=== PATIENT | female | born 1940 | race Caucasian/White ===

== ENCOUNTER → 2018-03-08 | Outpatient (CLI) | payer MEDICARE, BC ==
[2016-06-30 06:00] VITALS: BP 135/62
[~2018-03-08] MED LIST: ASPIRIN E.C. 8181 MG PO; CARDURA1 MG PO; FEOSOL325 MG PO; GOOD NEIGHBOR100 M2 PO; HORIZANT300 MG PO; HORIZANT600 MG PO; HYZAAR PO; LEADER CRANBERR1 TAB PO; LEVOFLOXACIN500 MG PO; LOSARTAN POTASS1 TA1 PO; MIRAPEX 1MG PO; NEXIUM 40MG40 MG PEG; PANTOPRAZOLE SO40 MG PO; PANTOPRAZOLE40 MG PO; PHARMASSURE FO0.4 MG PO; PHENAZOPYRIDINE95 MG PO; PROBIOTIC1 EAC1 PO; TART CHERRY E1000 MG PO; VITAMIN C PURE500 M1 PO
[2018-03-08 09:56] LABS: BUN/CREATININE RATIO 28.1 (6.0-26.0); CALCIUM 9.6 mg/dL (8.4-10.2)
== END ==
LOC: LAB 09:39
PROVIDERS: Family Medicine
DX: R79.89 Other specified abnormal findings of blood chemistry (principal)

== ENCOUNTER → 2018-03-09 | Outpatient (CLI) | payer MEDICARE, BC ==
[2016-06-30 06:00] VITALS: BP 135/62
[2018-03-09 07:19] LABS: BUN/CREATININE RATIO 34.3 (6.0-26.0); CALCIUM 9.1 mg/dL (8.4-10.2); POTASSIUM 3.9 mmol/L (3.6-5.0)
[2018-03-09 07:51] LABS: URINE APPEARANCE CLEAR; URINE BILIRUBIN NEGATIVE (NEGATIVE); URINE BLOOD NEGATIVE (NEGATIVE); URINE COLOR YELLOW; URINE GLUCOSE NEGATIVE (NEGATIVE); URINE KETONE NEGATIVE (NEGATIVE); URINE LEUKOCYTE ESTERASE NEGATIVE (NEGATIVE); URINE MUCUS PRESENT (NOT PRESENT); URINE NITRATE NEGATIVE (NEGATIVE); URINE PROTEIN(semi-quant) NEGATIVE (NEGATIVE); URINE UROBILINOGEN NORMAL (NORMAL); URINE WBC 0-1 /hpf (0-3)
== END ==
LOC: LAB 06:46
PROVIDERS: Family Medicine
DX: R79.89 Other specified abnormal findings of blood chemistry (principal)

== ENCOUNTER → 2018-03-10 | Outpatient (CLI) | payer MEDICARE, BC ==
[2016-06-30 06:00] VITALS: BP 135/62
[2018-03-10 08:25] LABS: BUN/CREATININE RATIO 34.2 (6.0-26.0); CALCIUM 9.2 mg/dL (8.4-10.2); POTASSIUM 4.5 mmol/L (3.6-5.0)
== END ==
LOC: LAB 07:10
PROVIDERS: Nurse Practitioner Family
DX: R79.89 Other specified abnormal findings of blood chemistry (principal)

== ENCOUNTER → 2018-03-14 | Outpatient (CLI) | payer MEDICARE, BC ==
[2016-06-30 06:00] VITALS: BP 135/62
[2018-03-14 07:50] LABS: BUN/CREATININE RATIO 24.3 (6.0-26.0); CALCIUM 8.7 mg/dL (8.4-10.2); POTASSIUM 4.3 mmol/L (3.6-5.0)
== END ==
LOC: LAB 07:26
PROVIDERS: Family Medicine
DX: R89.9 Unspecified abnormal finding in specimens from other organs, systems and tissues (principal); R79.89 Other specified abnormal findings of blood chemistry; R79.9 Abnormal finding of blood chemistry, unspecified

== ENCOUNTER → 2018-05-04 | Outpatient (CLI) | payer MEDICARE, BC ==
[2016-06-30 06:00] VITALS: BP 135/62
== END ==
LOC: VAS 15:35
DX: R93.1 Abnormal findings on diagnostic imaging of heart and coronary circulation (principal)

== ENCOUNTER 2019-02-14 10:57 | Observation (INO) | payer MEDICARE, BC ==
[~2019-02-14] VITALS: Ht 165.1 cm; Wt 96.4 kg
[~2019-02-14 10:57] MED LIST changes: +BISOPROLOL FUMA10 M1 PO; +CALCIUM + D3 E1 EACH PO; +DECADRON4 M1 PO; +PROBIOTIC1 EAC2 PO; +REVLIMID10 M1 PO; +VELCADE3.5 MG IM; +VELCADE3.5 MG IV
[2019-02-14 12:27] LABS: HEMATOCRIT 30.9 % (37.0-47.0); HEMOGLOBIN 9.1 g/dL (12.5-16.0); MEAN CELL VOLUME 88 fl (78-100); MEAN CORPUSCULAR HEMOGLOBIN 26 pg (27-31); PLATELET COUNT 133 K/mm3 (130-400); RED BLOOD COUNT 3.52 M/mm3 (4.10-5.30); RED CELL DISTRIBUTION WIDTH 16.2 % (11.5-14.5); WHITE BLOOD COUNT 5.1 K/mm3 (4.8-10.8)
[2019-02-14 12:31] LABS: ALBUMIN 3.4 g/dL (3.5-5.0); CALCIUM 9.2 mg/dL (8.4-10.2); POTASSIUM 3.8 mmol/L (3.6-5.0); TOTAL BILIRUBIN 0.5 mg/dL (0.2-1.3); TOTAL PROTEIN 5.6 g/dL (6.3-8.2)
[2019-02-14 12:32] LABS: MEAN CORPUSCULAR HGB CONC 29 g/dL (33-37); MEAN PLATELET VOLUME 12.9 fl (7.4-10.4)
[2019-02-14 12:36] LABS: PARTIAL THROMBOPLASTIN TIME 25.2 SECONDS (21.0-32.0); PROTHROMBIN TIME 10.5 SECONDS (9.0-12.0)
[2019-02-14 12:51] LABS: TROPONIN-I < 0.03 ng/mL (0.00-0.06)
[2019-02-14 12:52] LABS: HYPOCHROMIA 1+; LYMPHOCYTE 20 % (20-51); MONOCYTE 10 % (3-10); NEUTROPHILS 53 % (42-75)
[2019-02-14 16:25] VITALS: BP 159/93
[2019-02-14 16:50] LABS: URINE APPEARANCE HAZY; URINE COLOR YELLOW; URINE PROTEIN(semi-quant) TRACE mg/dL (NEGATIVE)
[2019-02-14 16:51] LABS: URINE BILIRUBIN NEGATIVE (NEGATIVE); URINE BLOOD TRACE (NEGATIVE); URINE GLUCOSE NEGATIVE (NEGATIVE); URINE KETONE NEGATIVE (NEGATIVE); URINE LEUKOCYTE ESTERASE 2+ (NEGATIVE); URINE NITRATE NEGATIVE (NEGATIVE); URINE UROBILINOGEN NORMAL (NORMAL); URINE WBC 31-50 /hpf (0-3)
[2019-02-14] MEDS ORDERED: NEURONTIN300 MG/CAP (17:20)
[2019-02-14] MEDS ORDERED: NEURONTIN600 M1 PO (17:20)
[2019-02-14 18:43] VITALS: BP 159/93
[2019-02-14 22:57] VITALS: BP 128/765
[2019-02-15 02:31] VITALS: BP 121/59
[2019-02-15 06:22] VITALS: BP 133/62
[2019-02-15] MEDS ORDERED: MACROBID 100 M100 MG PO (07:53)
[2019-02-15] MEDS ORDERED: BISOPROLOL FUMA10 M1 PO ×2 (07:53→07:54)
[2019-02-16] MEDS ORDERED: PREDNISONE20 MG PO (20:01)
[2019-02-16] MEDS ORDERED: LASIX20 M1 PO (20:01)
[2019-02-19] MEDS ORDERED: COZAAR25 M1 PO (20:03)
[2019-02-19] MEDS ORDERED: PREDNISONE20 M1 PO (20:08)
== END 2019-02-15 08:43 | disposition home or self-care (01) ==
LOC: ED 10:57 → MED/SURG 16:03
PROVIDERS: ADMIT Physician Assistant
DX: R06.09 Other forms of dyspnea (principal); Z79.01 Long term (current) use of anticoagulants; I10 Essential (primary) hypertension; Z86.718 Personal history of other venous thrombosis and embolism; Z90.710 Acquired absence of both cervix and uterus; Z96.651 Presence of right artificial knee joint; Z88.8 Allergy status to other drugs, medicaments and biological substances; Z88.0 Allergy status to penicillin; Z88.2 Allergy status to sulfonamides; Z88.5 Allergy status to narcotic agent; Z88.1 Allergy status to other antibiotic agents; Z88.6 Allergy status to analgesic agent; Z91.018 Allergy to other foods; N39.0 Urinary tract infection, site not specified; Z85.79 Personal history of other malignant neoplasms of lymphoid, hematopoietic and related tissues
CPT/HCPCS: G0378; J1650; Q9967

== ENCOUNTER 2019-02-22 19:44 | Outpatient (RCR) | payer MEDICARE, BC ==
[2019-02-13 08:00] VITALS: BP 137/64
[2019-02-13 19:52] VITALS: BP 146/71
[2019-02-14 07:57] VITALS: BP 151/67
[2019-02-15 20:10] VITALS: BP 162/71
[2019-02-16 08:06] VITALS: BP 131/65
[2019-02-16 20:00] VITALS: BP 193/82
[2019-02-17 07:56] VITALS: BP 165/72
[2019-02-17 19:46] VITALS: BP 194/90
[2019-02-18 08:05] VITALS: BP 135/66
[2019-02-18 19:59] VITALS: BP 189/80
[2019-02-19 09:44] VITALS: BP 165/78
[2019-02-19 20:10] VITALS: BP 194/84
[2019-02-20 08:03] VITALS: BP 187/88
[2019-02-20 19:48] VITALS: BP 156/71
[2019-02-21 07:55] VITALS: BP 147/68
[2019-02-21 20:02] VITALS: BP 164/82
[~2019-02-22] VITALS: Ht 165.1 cm; Wt 96.0 kg
[2019-02-22 07:59] VITALS: BP 157/72
[~2019-02-22 19:44] MED LIST changes: +COZAAR25 M1 PO; +LASIX20 M1 PO; +MACROBID 100 M100 MG PO; +NEURONTIN300 MG/CAP; +NEURONTIN600 M1 PO; +PREDNISONE20 M1 PO; +PREDNISONE20 MG PO
[2019-02-22 20:00] VITALS: BP 161/73
[2019-02-27] MEDS ORDERED: COUMADIN 1010 MG/TAB PO (20:06)
== END 2019-02-22 20:00 | disposition home or self-care (01) ==
LOC: AMSURD 19:44
DX: I82.402 Acute embolism and thrombosis of unspecified deep veins of left lower extremity (principal); I26.99 Other pulmonary embolism without acute cor pulmonale; C90.00 Multiple myeloma not having achieved remission
CPT/HCPCS: J1650

== ENCOUNTER 2019-03-02 07:52 | Outpatient (RCR) | payer MEDICARE, BC ==
[2019-02-23 07:55] VITALS: BP 188/85
[2019-02-23 19:50] VITALS: BP 196/96
[2019-02-24 07:50] VITALS: BP 172/74
[2019-02-24 19:55] VITALS: BP 189/93
[2019-02-25 07:58] VITALS: BP 181/79
[2019-02-25 19:47] VITALS: BP 177/79
[2019-02-26 09:34] VITALS: BP 176/83
[2019-02-26 19:59] VITALS: BP 161/88
[2019-02-27 07:52] VITALS: BP 146/71
[2019-02-27 20:09] VITALS: BP 179/82
[2019-02-28 08:00] VITALS: BP 153/75
[2019-02-28 19:42] VITALS: BP 159/78
[2019-03-01 08:00] VITALS: BP 154/73
[2019-03-01 20:43] VITALS: BP 181/79
[~2019-03-02] VITALS: Ht 165.1 cm; Wt 96.0 kg
[~2019-03-02 07:52] MED LIST changes: +COUMADIN 1010 MG/TAB PO
[2019-03-02 07:58] VITALS: BP 134/77
== END 2019-03-02 10:00 | disposition home or self-care (01) ==
LOC: AMSURD 07:52
DX: C90.00 Multiple myeloma not having achieved remission (principal)
CPT/HCPCS: J1650

== ENCOUNTER 2019-04-17 15:36 | Outpatient (RCR) | payer MEDICARE, BC ==
[2019-04-05 10:38] VITALS: BP 155/62
[2019-04-06 10:30] VITALS: BP 158/77
[2019-04-07 10:43] VITALS: BP 147/75
[2019-04-08 10:20] VITALS: BP 142/78
[2019-04-09 10:26] VITALS: BP 159/87
[2019-04-10 09:10] VITALS: BP 129/72
[2019-04-11 15:56] VITALS: BP 126/66
[2019-04-13 15:55] VITALS: BP 150/87
[2019-04-14 16:14] VITALS: BP 152/91
[2019-04-15 17:15] VITALS: BP 178/86
[2019-04-16 16:29] VITALS: BP 189/97
[~2019-04-17] VITALS: Ht 165.1 cm; Wt 88.2 kg
[~2019-04-17 15:36] MED LIST changes: +DOXYCYCLINE HYC50 M1
[2019-04-17 15:42] VITALS: BP 182/89
== END 2019-04-17 16:00 | disposition home or self-care (01) ==
LOC: AMSURD 15:36
DX: I26.99 Other pulmonary embolism without acute cor pulmonale (principal)
CPT/HCPCS: J1650

== ENCOUNTER 2019-11-07 08:56 | Outpatient (RCR) | payer MEDICARE, BC ==
[2019-11-03 09:15] VITALS: BP 125/64
[2019-11-04 09:45] VITALS: BP 125/60
[2019-11-05 09:26] VITALS: BP 126/66
[2019-11-06 09:13] VITALS: BP 124/69
[~2019-11-07] VITALS: Ht 165.1 cm; Wt 88.2 kg
[~2019-11-07 08:56] MED LIST changes: +ALDACTONE 25MG25 MG PO; +COUMADIN 1MG1 MG/TAB PO; +GLUTAMENT10 GM; +GLUTAMENT10 GM PO
[2019-11-07 09:08] VITALS: BP 109/61
== END 2019-11-07 18:00 | disposition home or self-care (01) ==
LOC: AMSURD 08:56
DX: Z86.711 Personal history of pulmonary embolism (principal)
CPT/HCPCS: J1650

== ENCOUNTER → 2019-11-08 | Day surgery (SDC) | payer MEDICARE, BC ==
[2019-11-07 09:08] VITALS: BP 109/61
== END ==
LOC: MSO 08:38
DX: K21.9 Gastro-esophageal reflux disease without esophagitis (principal); K44.9 Diaphragmatic hernia without obstruction or gangrene; K31.89 Other diseases of stomach and duodenum; E78.00 Pure hypercholesterolemia, unspecified; Z90.710 Acquired absence of both cervix and uterus; Z88.1 Allergy status to other antibiotic agents; Z88.5 Allergy status to narcotic agent; Z79.01 Long term (current) use of anticoagulants; Z79.84 Long term (current) use of oral hypoglycemic drugs; Z88.0 Allergy status to penicillin; Z88.8 Allergy status to other drugs, medicaments and biological substances; Z88.6 Allergy status to analgesic agent
CPT/HCPCS: 00731; J2704; J7120

== ENCOUNTER 2019-11-15 10:00 | Outpatient (RCR) | payer MEDICARE, BC | END 2019-11-21 | disposition still patient (30) | LOC: PT | DX: C90.00 Multiple myeloma not having achieved remission (principal); C41.9 Malignant neoplasm of bone and articular cartilage, unspecified ==

== ENCOUNTER 2019-12-31 18:01 | Emergency (ER) | payer MEDICARE, BC ==
[~2019-12-31] VITALS: Wt 86.4 kg
[~2019-12-31 18:01] MED LIST changes: -ZOVIRAX400 MG PO
[2019-12-31] MEDS ORDERED: NEURONTIN300 MG/CAP (18:25)
[2019-12-31] MEDS ORDERED: ZOVIRAX400 MG PO (18:25)
[2019-12-31 18:28] LABS: HEMATOCRIT 25.6 % (37.0-47.0); MEAN CELL VOLUME 100 fl (78-100); MEAN CORPUSCULAR HEMOGLOBIN 30 pg (27-31); MEAN CORPUSCULAR HGB CONC 30 g/dL (33-37); MEAN PLATELET VOLUME 10.9 fl (7.4-10.4); PLATELET COUNT 288 K/mm3 (130-400); RED BLOOD COUNT 2.56 M/mm3 (4.10-5.30); RED CELL DISTRIBUTION WIDTH 15.8 % (11.5-14.5); WHITE BLOOD COUNT 18.8 K/mm3 (4.8-10.8)
[2019-12-31 18:30] LABS: HEMOGLOBIN 7.6 g/dL (12.5-16.0)
[2019-12-31 18:36] LABS: ALBUMIN 3.7 g/dL (3.4-4.8); POTASSIUM 4.2 mmol/L (3.5-5.1)
[2019-12-31 18:37] LABS: CALCIUM 9.8 mg/dL (8.3-10.5)
[2019-12-31 18:39] LABS: TOTAL PROTEIN 6.6 g/dL (6.2-8.1)
[2019-12-31 18:40] LABS: BAND 1 % (0-10); LYMPHOCYTE 10 % (20-51); MONOCYTE 10 % (3-10); NEUTROPHILS 77 % (42-75); TOTAL BILIRUBIN 0.7 mg/dL (0.2-1.2)
[2019-12-31 18:41] LABS: PROTHROMBIN TIME 13.2 SECONDS (9.0-12.0)
[2019-12-31 23:08] VITALS: BP 121/66
== END 2019-12-31 23:08 | disposition short-term general hospital (02) ==
LOC: ED 18:01
PROVIDERS: Nurse Practitioner Primary Care
DX: I26.99 Other pulmonary embolism without acute cor pulmonale (principal); N17.9 Acute kidney failure, unspecified; I82.402 Acute embolism and thrombosis of unspecified deep veins of left lower extremity; Z79.01 Long term (current) use of anticoagulants; Z85.79 Personal history of other malignant neoplasms of lymphoid, hematopoietic and related tissues
CPT/HCPCS: J1644; J7030; Q9967

== ENCOUNTER → 2019-12-31 | Outpatient (CLI) | payer MEDICARE, BC ==
[~2019-12-31] MED LIST changes: +ZOVIRAX400 MG PO
== END ==
LOC: RAD 17:28
DX: Z13.6 Encounter for screening for cardiovascular disorders (principal); I82.402 Acute embolism and thrombosis of unspecified deep veins of left lower extremity; M79.89 Other specified soft tissue disorders

== ENCOUNTER 2020-01-31 09:28 | Outpatient (RCR) | payer MEDICARE, BC ==
[2020-01-07 12:16] VITALS: BP 135/72
[2020-01-08 17:06] VITALS: BP 148/71
[2020-01-09 09:05] VITALS: BP 153/79
[2020-01-10 09:04] VITALS: BP 151/71
[2020-01-11 09:05] VITALS: BP 122/74
[2020-01-12 08:56] VITALS: BP 119/70
[2020-01-13 09:46] VITALS: BP 124/79
[2020-01-14 09:14] VITALS: BP 123/68
[2020-01-15 08:37] VITALS: BP 123/66
[2020-01-16 09:16] VITALS: BP 115/67
[2020-01-17 11:32] VITALS: BP 118/57
[2020-01-18 09:13] VITALS: BP 128/68
[2020-01-19 09:09] VITALS: BP 137/72
[2020-01-20 09:40] VITALS: BP 118/66
[2020-01-21 08:58] VITALS: BP 138/76
[2020-01-22 09:37] VITALS: BP 122/71
[2020-01-23 09:36] VITALS: BP 127/75
[2020-01-24 09:44] VITALS: BP 133/67
[2020-01-25 09:38] VITALS: BP 157/77
[2020-01-26 09:42] VITALS: BP 170/85
[2020-01-27 09:55] VITALS: BP 107/65
[2020-01-28 09:43] VITALS: BP 134/70
[2020-01-29 09:15] VITALS: BP 132/71
[2020-01-30 09:41] VITALS: BP 150/81
[~2020-01-31] VITALS: Ht 165.1 cm; Wt 85.5 kg
[~2020-01-31 09:28] MED LIST changes: +ZOVIRAX400 MG PO
[2020-01-31 11:33] VITALS: BP 122/70
== END 2020-04-06 | disposition still patient (30) ==
LOC: AMSURD
DX: I26.99 Other pulmonary embolism without acute cor pulmonale (principal); I82.402 Acute embolism and thrombosis of unspecified deep veins of left lower extremity; Z79.01 Long term (current) use of anticoagulants
CPT/HCPCS: J1650

== ENCOUNTER 2021-04-14 11:00 | Outpatient (RCR) | payer MEDICARE, BC ==
[2020-08-11 16:17] VITALS: BP 160/68
== END 2021-04-23 10:22 | disposition home or self-care (01) ==
LOC: PT 11:00
DX: M25.512 Pain in left shoulder (principal)

== ENCOUNTER 2021-04-27 11:49 | Emergency (ER) | payer MEDICARE, BC ==
[2021-04-27 12:32] LABS: HEMATOCRIT 32.3 % (37.0-47.0); HEMOGLOBIN 10.1 g/dL (12.5-16.0); MEAN CELL VOLUME 96 fl (78-100); MEAN CORPUSCULAR HEMOGLOBIN 30 pg (27-31); MEAN CORPUSCULAR HGB CONC 31 g/dL (33-37); MEAN PLATELET VOLUME 10.7 fl (7.4-10.4); PLATELET COUNT 234 K/mm3 (130-400); RED BLOOD COUNT 3.36 M/mm3 (4.10-5.30); RED CELL DISTRIBUTION WIDTH 14.7 % (11.5-14.5); WHITE BLOOD COUNT 8.9 K/mm3 (4.8-10.8)
[2021-04-27 12:47] LABS: ALBUMIN 3.9 g/dL (3.4-4.8)
[2021-04-27 12:48] LABS: LYMPHOCYTE 7 % (20-51); MONOCYTE 1 % (3-10); NEUTROPHILS 92 % (42-75); OVALOCYTES 1+; POTASSIUM 3.7 mmol/L (3.5-5.1); SODIUM 141 mmol/L (136-145)
[2021-04-27 12:49] LABS: CALCIUM 9.6 mg/dL (8.3-10.5)
[2021-04-27 12:50] LABS: GLUCOSE 221 mg/dL (65-105); TOTAL PROTEIN 6.2 g/dL (6.2-8.1)
[2021-04-27 12:51] LABS: CARBON DIOXIDE 27 mmol/L (23-31); PARTIAL THROMBOPLASTIN TIME 19.4 SECONDS (21.0-32.0); PROTHROMBIN TIME 9.9 SECONDS (9.0-12.0)
[2021-04-27 12:52] LABS: TOTAL BILIRUBIN 0.3 mg/dL (0.2-1.2)
[2021-04-27 12:55] LABS: AST-SGOT 6 U/L (5-34)
[2021-04-27 12:57] LABS: ALT/SGPT 13 U/L (0-55)
[2021-04-27 13:04] LABS: TROPONIN-I < 0.03 ng/mL (<0.030)
[2021-04-27 13:48] LABS: URINE APPEARANCE CLEAR; URINE BILIRUBIN NEGATIVE (NEGATIVE); URINE BLOOD NEGATIVE (NEGATIVE); URINE COLOR YELLOW; URINE GLUCOSE NEGATIVE (NEGATIVE); URINE KETONE NEGATIVE (NEGATIVE); URINE LEUKOCYTE ESTERASE NEGATIVE (NEGATIVE); URINE NITRATE NEGATIVE (NEGATIVE); URINE PROTEIN(semi-quant) TRACE mg/dL (NEGATIVE); URINE UROBILINOGEN NORMAL (NORMAL)
[2021-04-27] MEDS ORDERED: ZITHROMAX 250M250 MG PO (14:11)
[2021-04-27] MEDS ORDERED: NOVAPLUS LO SQ (14:23)
[2021-04-27] MEDS ORDERED: LOSARTAN POTAS100 MG PO (14:24)
[2021-04-27] MEDS ORDERED: GLIMEPIRIDE1 MG PO (14:24)
[2021-04-27] MEDS ORDERED: PRAMIPEXOLE DIHY1 MG PO (14:27)
[2021-04-27] MEDS ORDERED: NORCO 325 MG-51 TA1 PO (14:30)
[2021-04-27] MEDS ORDERED: ONDANSETRON ODT8 MG PO (14:30)
[2021-04-27] MEDS ORDERED: [UNRECOGNIZED DRUG - OTHER] IV (14:30)
[2021-04-27] MEDS ORDERED: OXYGEN NAS (14:31)
[2021-04-27 17:05] VITALS: BP 197/94
== END 2021-04-27 17:05 | disposition home or self-care (01) ==
LOC: ED 11:49
PROVIDERS: Nurse Practitioner
DX: J40 Bronchitis, not specified as acute or chronic (principal); I10 Essential (primary) hypertension; M54.6 Pain in thoracic spine; Z86.711 Personal history of pulmonary embolism; Z86.718 Personal history of other venous thrombosis and embolism; Z20.822 Contact with and (suspected) exposure to COVID-19; Z88.8 Allergy status to other drugs, medicaments and biological substances; Z79.01 Long term (current) use of anticoagulants; Z79.899 Other long term (current) drug therapy
CPT/HCPCS: J2270; J2405; J2930; J3010; J7030; Q9967

== ENCOUNTER → 2021-06-11 | Outpatient (CLI) | payer MEDICARE, BC ==
[~2021-06-11] MED LIST changes: +GLIMEPIRIDE1 MG PO; +LOSARTAN POTAS100 MG PO; +NORCO 325 MG-51 TA1 PO; +NOVAPLUS LO SQ; +ONDANSETRON ODT8 MG PO; +OXYGEN NAS; +PRAMIPEXOLE DIHY1 MG PO; +ZITHROMAX 250M250 MG PO; +[UNRECOGNIZED DRUG - OTHER] IV
== END ==
LOC: VAS 10:35 → RAD 11:30
DX: I82.462 Acute embolism and thrombosis of left calf muscular vein (principal); M79.661 Pain in right lower leg; M79.89 Other specified soft tissue disorders

== ENCOUNTER → 2021-09-22 | Outpatient (CLI) | payer MEDICARE, BC ==
[2021-09-22 08:54] LABS: ALBUMIN 3.8 g/dL (3.4-4.8)
[2021-09-22 08:55] LABS: POTASSIUM 4.1 mmol/L (3.5-5.1)
[2021-09-22 08:56] LABS: CALCIUM 9.8 mg/dL (8.3-10.5)
[2021-09-22 08:57] LABS: TOTAL PROTEIN 6.3 g/dL (6.2-8.1)
[2021-09-22 08:59] LABS: TOTAL BILIRUBIN 0.5 mg/dL (0.2-1.2)
== END ==
LOC: LAB 06:58
PROVIDERS: Internal Medicine Nephrology
DX: C90.00 Multiple myeloma not having achieved remission (principal); I12.9 Hypertensive chronic kidney disease with stage 1 through stage 4 chronic kidney disease, or unspecified chronic kidney disease; N18.31 Chronic kidney disease, stage 3a

== ENCOUNTER → 2021-09-24 | Outpatient (CLI) | payer MEDICARE, BC | LOC: RAD 09-22 07:30 | DX: N18.31 Chronic kidney disease, stage 3a (principal); N28.9 Disorder of kidney and ureter, unspecified ==

== ENCOUNTER → 2021-11-05 | Day surgery (SDC) | payer MEDICARE, BC | LOC: MSO 08:28 | DX: K21.00 Gastro-esophageal reflux disease with esophagitis, without bleeding (principal); K44.9 Diaphragmatic hernia without obstruction or gangrene; K22.2 Esophageal obstruction; K29.70 Gastritis, unspecified, without bleeding; Z86.711 Personal history of pulmonary embolism; Z86.718 Personal history of other venous thrombosis and embolism; E11.22 Type 2 diabetes mellitus with diabetic chronic kidney disease; N18.30 Chronic kidney disease, stage 3 unspecified; Z85.820 Personal history of malignant melanoma of skin; E11.42 Type 2 diabetes mellitus with diabetic polyneuropathy; Z79.899 Other long term (current) drug therapy | CPT/HCPCS: 00731; C1769; J2704; J7120 ==

== ENCOUNTER 2022-03-19 09:49 | Emergency (ER) | payer MEDICARE, BC ==
[~2022-03-19] VITALS: Ht 152.4 cm; Wt 68.7 kg
[2022-03-19 12:25] LABS: BASO # 0.02 K/mm3 (0.02-0.10); EOS # 0.12 K/mm3 (0.04-0.40); EOS % 1.7 % (1.0-5.0); HEMATOCRIT 32.1 % (37.0-47.0); LYMPH# 1.14 K/mm3 (1.50-4.00); MEAN CELL VOLUME 99 fl (78-100); MEAN CORPUSCULAR HEMOGLOBIN 31 pg (27-31); MEAN CORPUSCULAR HGB CONC 31 g/dL (33-37); MEAN PLATELET VOLUME 11.6 fl (7.4-10.4); MONO # 0.62 K/mm3 (0.20-0.80); NEU # 4.89 K/mm3 (1.40-6.50); PLATELET COUNT 210 K/mm3 (130-400); RED BLOOD COUNT 3.26 M/mm3 (4.10-5.30); RED CELL DISTRIBUTION WIDTH 19.8 % (11.5-14.5); WHITE BLOOD COUNT 6.9 K/mm3 (4.8-10.8)
[2022-03-19 12:29] LABS: ALBUMIN 3.6 g/dL (3.4-4.8); SODIUM 141 mmol/L (136-145)
[2022-03-19 12:30] LABS: CALCIUM 11.7 mg/dL (8.3-10.5)
[2022-03-19 12:32] LABS: GLUCOSE 124 mg/dL (65-105); TOTAL PROTEIN 6.1 g/dL (6.2-8.1)
[2022-03-19 12:33] LABS: CARBON DIOXIDE 30 mmol/L (23-31); TOTAL BILIRUBIN 0.6 mg/dL (0.2-1.2)
[2022-03-19 12:37] LABS: AST-SGOT 11 U/L (5-34)
[2022-03-19 12:39] LABS: ALT/SGPT 15 U/L (0-55)
[2022-03-19 13:18] LABS: TROPONIN-I < 0.030 ng/mL (<0.030)
[2022-03-19 14:57] LABS: URINE APPEARANCE CLEAR; URINE BILIRUBIN NEGATIVE (NEGATIVE); URINE BLOOD NEGATIVE (NEGATIVE); URINE COLOR LIGHT YELLOW; URINE GLUCOSE NEGATIVE (NEGATIVE); URINE KETONE NEGATIVE (NEGATIVE); URINE LEUKOCYTE ESTERASE NEGATIVE (NEGATIVE); URINE NITRATE NEGATIVE (NEGATIVE); URINE PROTEIN(semi-quant) TRACE (NEGATIVE); URINE UROBILINOGEN NORMAL (NORMAL); URINE WBC 0-1 /hpf (0-3)
[2022-03-19 15:25] VITALS: BP 138/68
== END 2022-03-19 15:40 | disposition home or self-care (01) ==
LOC: ED 09:49
PROVIDERS: Nurse Practitioner
DX: M25.551 Pain in right hip (principal); M54.50 Low back pain, unspecified; C90.00 Multiple myeloma not having achieved remission; Z98.890 Other specified postprocedural states; Z98.1 Arthrodesis status; Z87.81 Personal history of (healed) traumatic fracture
CPT/HCPCS: J7030

== ENCOUNTER → 2022-05-19 | Outpatient (CLI) | payer MEDICARE, BC | LOC: LAB 17:55 | DX: U07.1 COVID-19 (principal) ==

== ENCOUNTER → 2022-05-21 | Outpatient (CLI) | payer MEDICARE, BC ==
[~2022-05-21] VITALS: Ht 152.4 cm; Wt 68.7 kg
[2022-05-21 12:21] VITALS: BP 169/81
[2022-05-21 13:25] VITALS: BP 156/76
== END ==
LOC: AMSURD 11:33
DX: U07.1 COVID-19 (principal); E11.22 Type 2 diabetes mellitus with diabetic chronic kidney disease; N18.9 Chronic kidney disease, unspecified

== ENCOUNTER 2022-06-05 09:58 | Emergency (ER) | payer MEDICARE, BC ==
[~2022-06-05] VITALS: Ht 165.1 cm; Wt 72.3 kg
[~2022-06-05 09:58] MED LIST changes: +NEURONTIN300 MG/CAP PO
[2022-06-05 11:10] LABS: BASO # 0.01 K/mm3 (0.02-0.10); EOS # 0.04 K/mm3 (0.04-0.40); EOS % 0.3 % (1.0-5.0); HEMOGLOBIN 9.5 g/dL (12.5-16.0); LYMPH# 0.66 K/mm3 (1.50-4.00); MEAN CELL VOLUME 101 fl (78-100); MEAN CORPUSCULAR HEMOGLOBIN 32 pg (27-31); MEAN CORPUSCULAR HGB CONC 32 g/dL (33-37); MEAN PLATELET VOLUME 11.7 fl (7.4-10.4); MONO # 1.08 K/mm3 (0.20-0.80); NEU # 13.13 K/mm3 (1.40-6.50); PLATELET COUNT 193 K/mm3 (130-400); RED BLOOD COUNT 2.97 M/mm3 (4.10-5.30); RED CELL DISTRIBUTION WIDTH 17.3 % (11.5-14.5); WHITE BLOOD COUNT 15.4 K/mm3 (4.8-10.8)
[2022-06-05 11:25] LABS: ALBUMIN 3.5 g/dL (3.4-4.8)
[2022-06-05 11:26] LABS: POTASSIUM 4.6 mmol/L (3.5-5.1)
[2022-06-05 11:27] LABS: CALCIUM 9.1 mg/dL (8.3-10.5)
[2022-06-05 11:28] LABS: TOTAL PROTEIN 5.5 g/dL (6.2-8.1)
[2022-06-05 11:32] LABS: D-DIMER 2.61 mg/L FEU (0.15-0.50)
[2022-06-05] MEDS ORDERED: CLONIDINE HYDR0.1 MG PO (11:34)
[2022-06-05] MEDS ORDERED: XARELTO10 MG PO (11:35)
[2022-06-05] MEDS ORDERED: OXYGEN NAS (11:36)
[2022-06-05 12:22] LABS: URINE APPEARANCE CLOUDY; URINE BILIRUBIN NEGATIVE (NEGATIVE); URINE BLOOD TRACE (NEGATIVE); URINE COLOR YELLOW; URINE GLUCOSE 50 mg/dL (NEGATIVE); URINE KETONE NEGATIVE (NEGATIVE); URINE LEUKOCYTE ESTERASE 2+ (NEGATIVE); URINE NITRATE NEGATIVE (NEGATIVE); URINE PROTEIN(semi-quant) 2+ (NEGATIVE); URINE UROBILINOGEN NORMAL (NORMAL); URINE WBC >50 /hpf (0-3)
[2022-06-05] MEDS ORDERED: AMLODIPINE BESYL5 MG PO (14:15)
[2022-06-05 15:35] VITALS: BP 146/55
== END 2022-06-05 15:30 | disposition short-term general hospital (02) ==
LOC: ED 09:58
PROVIDERS: Family Medicine
DX: U07.1 COVID-19 (principal); J18.9 Pneumonia, unspecified organism; E11.9 Type 2 diabetes mellitus without complications; I50.9 Heart failure, unspecified; I11.0 Hypertensive heart disease with heart failure; Z86.711 Personal history of pulmonary embolism
CPT/HCPCS: J0696; J1815; J7030; Q9967

== ENCOUNTER 2022-06-08 12:57 | Inpatient (IN) | payer MEDICARE, BC ==
[~2022-06-08] VITALS: Ht 167.6 cm; Wt 70.0 kg
[~2022-06-08 12:57] MED LIST changes: +AMLODIPINE BESYL5 MG PO; +CLONIDINE HYDR0.1 MG PO; +XARELTO10 MG PO
--- NOTE | 2022-06-08 13:00 | NUR ---
Patient transferred from [facility] for swing bed. Taken to room 306 via wheelchair. Patient transfers into bed with walker, gait belt, and staff assist x1. Patient is alert and oriented x4. Rates pain 3/10 to ankles and buttocks. States that she usually takes oxycodone for her pain. Single lumen PICC to right upper arm flushes without difficulty. Blood return noted. PICC dressing is clean, dry, and intact. No redness, drainage, or edema noted to insertion site. Patient denies dizziness or shortness of breath. Oxygen saturation 95% on room air. Patient states that she wears oxygen at 2 liters via nasal cannula while sleeping, at baseline. Last BM yesterday. Denies urinary incontinence. Patient oriented to room, call light, bed controls, and fall precautions. Visitor policy explained. Education folder and swing bed program letter provided. Discussed expectations and hospital routines. Patient verbalizes understanding and denies questions or needs at this time. Fall precautions in place.
[2022-06-08] MEDS ORDERED: VIBRAMYCIN HYC100 MG PO (14:41)
[2022-06-08] MEDS ORDERED: DECADRON6 M1 PO (14:42)
[2022-06-08] MEDS ORDERED: LEVEMIR100 U/M1 SQ (14:43)
[2022-06-08] MEDS ORDERED: ONDANSETRON HYDR8 MG PO (14:50)
[2022-06-08] MEDS ORDERED: BISOPROLOL FUMA10 M1 PO (14:51)
[2022-06-08] MEDS ORDERED: PERCOCET 325 MG1 TA2 PO (15:13)
[2022-06-08] MEDS ORDERED: PROAIR HFA0.09 MG/AC IH (15:16)
[2022-06-08] MEDS ORDERED: NOVOLOG 100U100 U/ML SQ (15:17)
[2022-06-08] MEDS ORDERED: ALDACTONE 25MG25 MG PO (15:31)
[2022-06-08 17:31] VITALS: BP 151/80
--- NOTE | 2022-06-08 23:00 | NUR ---
Report received from Sarah العلي. Patient rests with eyes closed. Respirations with ease.
[2022-06-09 06:00] VITALS: BP 142/65
--- NOTE | 2022-06-09 08:00 | NUR ---
Pt sitting in recliner. Reports sleeping well. Denies pain. Assessment completed. LSCTA. AM medication given. Occasional productive cough with clear sputum noted. Needs met. Fall precautions in place.
[2022-06-09 08:17] LABS: HEMATOCRIT 26.5 % (37.0-47.0); HEMOGLOBIN 8.6 g/dL (12.5-16.0); MEAN CELL VOLUME 100 fl (78-100); RED BLOOD COUNT 2.66 M/mm3 (4.10-5.30); WHITE BLOOD COUNT 15.3 K/mm3 (4.8-10.8)
[2022-06-09 08:18] LABS: MEAN CORPUSCULAR HEMOGLOBIN 32 pg (27-31); MEAN CORPUSCULAR HGB CONC 33 g/dL (33-37); MEAN PLATELET VOLUME 11.5 fl (7.4-10.4); PLATELET COUNT 311 K/mm3 (130-400); RED CELL DISTRIBUTION WIDTH 16.6 % (11.5-14.5)
[2022-06-09 08:24] LABS: URINE APPEARANCE CLOUDY; URINE BILIRUBIN NEGATIVE (NEGATIVE); URINE BLOOD NEGATIVE (NEGATIVE); URINE COLOR YELLOW; URINE KETONE NEGATIVE (NEGATIVE); URINE LEUKOCYTE ESTERASE TRACE (NEGATIVE); URINE NITRATE NEGATIVE (NEGATIVE); URINE PROTEIN(semi-quant) NEGATIVE (NEGATIVE); URINE UROBILINOGEN NORMAL (NORMAL)
[2022-06-09 08:32] LABS: ALBUMIN 3.4 g/dL (3.4-4.8); POTASSIUM 4.3 mmol/L (3.5-5.1)
[2022-06-09 08:33] LABS: CALCIUM 10.1 mg/dL (8.3-10.5)
[2022-06-09 08:36] LABS: TOTAL BILIRUBIN 0.4 mg/dL (0.2-1.2)
--- NOTE | 2022-06-09 09:00 | NUR ---
Urine culture recieved. New orders obtained.
[2022-06-09 09:19] LABS: LYMPHOCYTE 5 % (20-51); MONOCYTE 4 % (3-10); NEUTROPHILS 91 % (42-75)
[2022-06-09 09:21] LABS: HYPOCHROMIA 1+
[2022-06-09 17:15] VITALS: BP 128/67
--- NOTE | 2022-06-09 17:54 | NUR ---
PCT reports patient coughing. Upon entrance to room, patient noted coughing. Patient keeps conversation with nurse. Patient explains she "choked after drinking lemonade." Education provided, reminded to take small slow sips. Patient verbalizes understanding.
[2022-06-10 05:56] VITALS: BP 162/76
[2022-06-10 07:34] LABS: HEMATOCRIT 27.7 % (37.0-47.0); MEAN CELL VOLUME 98 fl (78-100); MEAN CORPUSCULAR HEMOGLOBIN 32 pg (27-31); MEAN CORPUSCULAR HGB CONC 33 g/dL (33-37); MEAN PLATELET VOLUME 11.1 fl (7.4-10.4); PLATELET COUNT 270 K/mm3 (130-400); RED BLOOD COUNT 2.83 M/mm3 (4.10-5.30); RED CELL DISTRIBUTION WIDTH 16.6 % (11.5-14.5); WHITE BLOOD COUNT 13.6 K/mm3 (4.8-10.8)
[2022-06-10 08:28] LABS: BAND 7 % (0-10); LYMPHOCYTE 7 % (20-51); METAMYELOCYTE 3 % (0-0); MONOCYTE 4 % (3-10)
[2022-06-10 08:29] LABS: NEUTROPHILS 79 % (42-75)
--- NOTE | 2022-06-10 09:41 | NUR ---
Pt up in recliner. Denies pain. Assessment completed. PICC line flushed well with blood return. Pt reports that her has rescheduled her Monday 06/[address] Sarmiento for a telehealth appt at 1145. Occasional nonproductive cough remains. Needs met. Fall precautions in place.
[2022-06-10 17:19] VITALS: BP 148/76
--- NOTE | 2022-06-10 19:00 | NUR ---
REPORT RECEIVED FROM SEVERIANO VELASQUEZ
--- NOTE | 2022-06-10 21:00 | NUR ---
PATIENT PLEASENT AND COOPERATIVE WITH CARES. A&OX4, STATES DISCOMFORT WITH MOVEMENT. ASSESSMENT COMPLETE. PATIENT SITTING IN CHAIR WITH TV ON, DENIES OTHER NEEDS OR COMPLAINTS AT THIS TIME. CHAIR ALARM ON, CALL LIGHT WITHIN REACH.
--- NOTE | 2022-06-10 23:00 | NUR ---
REPORT GIVENT TO SEVERIANO VILLA
[2022-06-11 06:14] VITALS: BP 163/71
--- NOTE | 2022-06-11 07:14 | NUR ---
REPORT GIVEN TO VESTA العلي
[2022-06-11 16:12] VITALS: BP 116/68
--- NOTE | 2022-06-11 19:00 | NUR ---
Report received from Danitza العلي.
--- NOTE | 2022-06-11 21:00 | NUR ---
HS meds reviewed and given. Alert and oriented x 4. Denies pain at this time. Snack of peanut butter toast and hot tea given per request.
--- NOTE | 2022-06-12 05:26 | NUR ---
Patient reports she slept well. States she feels like she's really improving by being here. Up to the bathroom and then to recliner.
[2022-06-12 06:07] VITALS: BP 167/76
--- NOTE | 2022-06-12 13:50 | NUR ---
Pt requests Oxycodone for pain. Pt educated about percocet versus oxycodone and verbalized understanding. States she would like to walk in a little bit, and would like to have the pain medication prior to walking around. Denies pain at rest, but states pain is 10/10 while up walking. Percocet given per PRN orders, and pt resting in chair-positioned for comfort. Call light in reach.
[2022-06-12 17:12] VITALS: BP 134/76
--- NOTE | 2022-06-12 19:00 | NUR ---
Report received from Taylor العلي.
--- NOTE | 2022-06-12 21:00 | NUR ---
HS meds all reviewed and given. Patient states she's going to sit up longer tonight in chair due to taking a nap earlier and will call when ready for HS. Denies needs at this time. Pleasant, alert and oriented x 4.
[2022-06-13 06:21] VITALS: BP 147/73
[2022-06-13 17:17] VITALS: BP 153/77
--- NOTE | 2022-06-13 20:00 | NUR ---
Report received from SEVERIANO Merino. Patient up in recliner. Takes meds whole with water. Denies pain at rest. Requests assistance to bathroom. PCT assists patient. Ambulates well with walker. No other needs at this time. Chair alarm set and call light within reach.
[2022-06-14 05:22] VITALS: BP 153/77
--- NOTE | 2022-06-14 06:00 | NUR ---
No events overnight. Patient rested well. No pain or needs at this time.
[2022-06-14 07:14] LABS: HEMATOCRIT 28.2 % (37.0-47.0); HEMOGLOBIN 9.2 g/dL (12.5-16.0); MEAN CELL VOLUME 99 fl (78-100); MEAN CORPUSCULAR HEMOGLOBIN 32 pg (27-31); MEAN CORPUSCULAR HGB CONC 33 g/dL (33-37); MEAN PLATELET VOLUME 10.9 fl (7.4-10.4); PLATELET COUNT 263 K/mm3 (130-400); RED BLOOD COUNT 2.84 M/mm3 (4.10-5.30)
[2022-06-14 07:15] LABS: ALBUMIN 3.2 g/dL (3.4-4.8)
[2022-06-14 07:16] LABS: POTASSIUM 4.6 mmol/L (3.5-5.1)
[2022-06-14 07:17] LABS: CALCIUM 9.4 mg/dL (8.3-10.5)
[2022-06-14 07:20] LABS: TOTAL BILIRUBIN 0.4 mg/dL (0.2-1.2)
[2022-06-14 09:12] LABS: BAND 13 % (0-10); LYMPHOCYTE 6 % (20-51); METAMYELOCYTE 4 % (0-0); MONOCYTE 6 % (3-10); NEUTROPHILS 71 % (42-75)
[2022-06-14 17:12] VITALS: BP 125/74
--- NOTE | 2022-06-14 19:00 | NUR ---
Report received from Angelique العلي.
--- NOTE | 2022-06-14 21:00 | NUR ---
HS meds all reviewed and given. Patient denies needs. Accu check 398 and states she's been snacking on cinnamon roll given earlier with meal. Reviewed not the ideal snack for diabetic patients. SSI and scheduled insulin given. Reviewed insulin injection SQ and states she gave herself lovenox shots in abdomin reqularly in the past and will be given her insulin shots there at home.
--- NOTE | 2022-06-15 01:07 | NUR ---
Patient has been resting in bed with eyes closed.
--- NOTE | 2022-06-15 05:53 | NUR ---
Patient reports she slept well. Reports 10/10 achy right hip/thigh pain with ambulation 0/10 at rest and tylenol given. Up to the bathroom then sits up in recliner.
[2022-06-15 06:11] VITALS: BP 162/80
[2022-06-15 17:26] VITALS: BP 108/65
--- NOTE | 2022-06-15 17:45 | NUR ---
Patient reports pain down the back of her right leg, only when standing or walking. Offered PRN pain medication, patient denies need, states "I'm sitting down now, so it doesn't hurt anymore." Discussed her pain while working with PT/OT, patient states that she feels like the tylenol hasn't worked in the past, but she would like to try taking it more frequently starting tomorrow. Offered voltaren gel and education provided. Patient reports the percocet makes her too sleepy. Patient is eager to work with PT/OT and willing/agreable to trying voltaren and taking tylenol every 4-6 hours during the day. Patient denies needs or questions. Fall precautions in place. at bedside.
--- NOTE | 2022-06-15 19:00 | NUR ---
Report received from Navya العلي.
--- NOTE | 2022-06-15 20:30 | NUR ---
Patient sitting up in recliner watching TV. Denies pain at rest but tylenol given along with HS meds for pain prevention. Right foot soaking in warm water with hepicleansed. Insulin injections reviewed and patient self administers with good demonstration.
--- NOTE | 2022-06-16 05:00 | NUR ---
Patient has been resting with eyes closed. Respirations with ease.
[2022-06-16 06:16] VITALS: BP 108/61
[2022-06-16 17:08] VITALS: BP 116/60
[2022-06-17 06:10] VITALS: BP 119/72
--- NOTE | 2022-06-17 07:29 | NUR ---
Report received from SEVERIANO Smith. Patient resting in room without complaints.
--- NOTE | 2022-06-17 09:46 | NUR ---
PATIENT IS HAVING A GOOD MORNING WITH DECREASE IN PAIN ALL OVER AND NO ABD PAIN OR CRAMPING. PATIENT RESTING IN CHAIR WITHOUT COMPLAINTS. PICC LINE FLUSHED WITH NS EASILY AND HAD GOOD BLOOD RETURN.
[2022-06-17 16:45] VITALS: BP 102/64
--- NOTE | 2022-06-17 17:38 | NUR ---
Patient having a good afternoon. Patient did take a nap and reported that she felt very tired. Patient's right great toe is slightly red today with no oozing, patient wanted to leave it open to air all afternoon. Patient reports it is feeling much better. PICC line was flushed this morning without difficulty. Patient is up ambulating with walker and SBA only. Patient takes all pills whole and without difficulty. Patient is doing well with therapy and walking with staff. Patient denied any pain today.
[2022-06-18 05:26] VITALS: BP 109/65
--- NOTE | 2022-06-18 07:00 | NUR ---
REPORT RECEIVED FROM SEVERIANO BARBER.
--- NOTE | 2022-06-18 08:45 | NUR ---
PATIENT PLEASENT AND COOPERATIVE WITH SATHISH, A&OX4, DENIES PAIN OR DISCOMFORT AT THIS TIME. PATIENT STATES SLEPT WELL THROUGHT THE NIGHT. ASSESSMENT COMPLETE, MEDICATIONS GIVEN. PATIENT RIGHT GREAT TOE, RED AND TENDER, OINTMENT APPLIED AND COVERED WITH BANDAID. PATIENT UP TO CHAIR, CHAIR ALARM ON, CALL LIGHT WITHIN REACH.
--- NOTE | 2022-06-18 09:15 | NUR ---
PER PT, PATIENT REQUESTS APAP BEFORE THERAPY THIS AM. PRN APAP GIVEN AT THIS TIME.
--- NOTE | 2022-06-18 12:53 | NUR ---
REPORT GIVEN TO SEVERIANO CENTENO.
[2022-06-18 17:06] VITALS: BP 105/64
--- NOTE | 2022-06-18 19:20 | NUR ---
Report received from Sharon العلي. Patient resting in bed with eyes closed. No signs of pain or distress. Oxygen in place at 2L/NC. Bed alarm telephone coin box collector light in reach.
--- NOTE | 2022-06-18 21:00 | NUR ---
Awake for HS medications and assessment. Ask nurse what time it is. CURTAIN DRIER reports patient thought it was morning. Reoriented to time of day. [place] to self, , place Month and year. Denies pain. States has productive cough of "sometimes white, sometimes cream" colored sputum. Assessment completed. BS 176. Scheduled Levemier 10 Units and 4 Units of Humalog adminisitered to ASHLIE per patient request. HS po medicaitons taken after reviewed each pill with patient. Refused to soak toe tonight, did not want to get up and OOB. Old bandiad removed, great toe on R foot cleansed with H20 and soap. patted dry. New bandaid and bactroban applied. Requests and given 4 oz of cranberry juice. Denies further wants or needs. Bed alarm on. Call light in reach.
--- NOTE | 2022-06-19 01:49 | NUR ---
Patient resting quietly with no signs of pain or distress. Oxygen in place at 2L/NC. Bed alarm on. Call light in reach.
[2022-06-19 05:24] VITALS: BP 95/59
--- NOTE | 2022-06-19 05:44 | NUR ---
Rested well all night without complaint. AM medication taken whole without difficulty. Denies pain or needs.
--- NOTE | 2022-06-19 07:00 | NUR ---
Report revieved from ANÍBAL Dukes.
--- NOTE | 2022-06-19 07:16 | NUR ---
Report to Kelsey العلي.
[2022-06-19 08:18] VITALS: BP 118/78
--- NOTE | 2022-06-19 13:02 | NUR ---
Pt reports feeling gas pain, pt offered Gas X to help. Once given the Gas X pt refused stating she now does not think it is gas she believes it is her hiatal hernia "coming back" and that she needs an x-ray. Notifing Dr. Cruz.
[2022-06-19 17:06] VITALS: BP 102/73
--- NOTE | 2022-06-19 18:41 | NUR ---
Report given to ANÍBAL Dukes.
--- NOTE | 2022-06-19 19:30 | NUR ---
Report received from Kelsey العلي. Patient sitting up in recliner playing on tablet. Currently A/O x4 and to time of night. Denies pain. Agreeable to have R great toe soak at this time. Bandaid removed and toe soaked x15 minutes in hematite salt bath. Dried. Bactroban applied and fresh bandaid. Toe remains slightly reddened, no drainage or pus noted. Non tender with touch. Assessment completed. Patient requests and given cup of coffee with 2 creamers. Call light in reach.
--- NOTE | 2022-06-19 20:01 | NUR ---
Resting in bed. Cooperative with assessment and cares. BS 139. Scheduled PO Lipitor taken without difficulty. Ricoier 12 Units given in DYLAN. Voices concern over not having her address book with her and that she is having a zoom meeting Tuesday to determine where she is going to live. "I wish they would tell me those things". Allowed patient to vent and reassurance given. Thanks this nurse. Assessment completed. Denies wants or needs at this time.
--- NOTE | 2022-06-20 05:05 | NUR ---
Rested well all night. Awake this AM for vitals. AM medication taken without difficulty.
[2022-06-20 05:25] VITALS: BP 102/64
--- NOTE | 2022-06-20 07:00 | NUR ---
Report received from PN. Christine
--- NOTE | 2022-06-20 07:01 | NUR ---
Report to Petrona العلي.
--- NOTE | 2022-06-20 08:30 | NUR ---
Assessemnt charted. Pt WBG low at 64 at 0730 this morning but preferred to drink juice and checked again 20 minutes later and increased to 77, per patient wanted to have breakfast and monitor after breakfast. Pt BP lower this am as well, discussed with Dr. Cruz and he would like to hold the amlodipine this am, notified pt and discussed and she agrees. Pt has PICC to DYLAN, single lumen, flushes well and sluggish blood return but return noted. Pt denies pain, some stomach discomfort. Pt denies needs, uses walker well with staff assist. Alert and oriented, will continue to monitor.
--- NOTE | 2022-06-20 13:05 | NUR ---
Pt soaking foot now, will apply bacitracin and new bandaid shortly. Denies needs, will give report to SEVERIANO Merino who will resume care.
[2022-06-20 15:41] VITALS: BP 104/60
--- NOTE | 2022-06-20 20:21 | NUR ---
Report received from Angelique العلي. Patient resting in recliner watching TV. INSTRUCTIONAL TECHNOLOGY FACILITATOR getting ready for bed and noted a rash below L breast and also complete L breast and around to back reddened and inflammed. Patient states "its probably and bleed" "thats how my other bleeds started, on my breast, my back and down my arm. B/P at this time 104/60. Above reported to Dr. Cruz. Order to give scheduled catapress and bisoprol. Labs CBC, CMP ordered. Lab notified. Assessment completed. R foot soaked at this time.
--- NOTE | 2022-06-20 20:45 | NUR ---
Accu-check 352. 12 Units of SS insulin given with scheduled Levemier. Snack provided. Lab in to draw blood.
[2022-06-20 21:01] LABS: HEMOGLOBIN 9.1 g/dL (12.5-16.0); MEAN CELL VOLUME 103 fl (78-100); MEAN CORPUSCULAR HEMOGLOBIN 32 pg (27-31); MEAN CORPUSCULAR HGB CONC 31 g/dL (33-37); MEAN PLATELET VOLUME 11.5 fl (7.4-10.4); PLATELET COUNT 172 K/mm3 (130-400); RED BLOOD COUNT 2.82 M/mm3 (4.10-5.30); RED CELL DISTRIBUTION WIDTH 18.3 % (11.5-14.5); WHITE BLOOD COUNT 6.2 K/mm3 (4.8-10.8)
[2022-06-20 21:04] LABS: ALBUMIN 3.3 g/dL (3.4-4.8)
[2022-06-20 21:05] LABS: POTASSIUM 5.3 mmol/L (3.5-5.1)
[2022-06-20 21:06] LABS: CALCIUM 9.3 mg/dL (8.3-10.5)
[2022-06-20 21:07] LABS: TOTAL PROTEIN 5.9 g/dL (6.2-8.1)
[2022-06-20 21:09] LABS: TOTAL BILIRUBIN 0.3 mg/dL (0.2-1.2)
--- NOTE | 2022-06-20 21:48 | NUR ---
Glucose of 445 and CO2 of [address] Cruz.
[2022-06-20 21:57] LABS: LYMPHOCYTE 4 % (20-51); MONOCYTE 2 % (3-10); NEUTROPHILS 94 % (42-75)
[2022-06-20 21:59] LABS: OVALOCYTES 1+
--- NOTE | 2022-06-20 22:14 | NUR ---
Dr. Cruz in to see patient.
--- NOTE | 2022-06-21 05:47 | NUR ---
Rested well all night. Up to BR this AM with SBA. AM medication taken. Weight obtained, down 0.5Lbs from admission weight.
[2022-06-21 06:03] VITALS: BP 128/72
--- NOTE | 2022-06-21 07:03 | NUR ---
Report to Sharon العلي.
--- NOTE | 2022-06-21 09:14 | NUR ---
Patient resting in chair. SBA with gait belt and walker, RA, c/o pain in right leg while ambulating. Reports she didn't sleep well last night. Concerned about increased fatigue. Chair in locked position. Call light within reach.
[2022-06-21 15:27] VITALS: BP 133/79
--- NOTE | 2022-06-22 02:16 | NUR ---
Report received from Sarah العلي. Patient resting in bed with eyes closed. No signs of pain or distress. Bed alarm on. Call light in reach.
--- NOTE | 2022-06-22 05:30 | NUR ---
Rested well. Up to BR with SBA. AM medications taken. Weight up 0.8lbs from yesterday. LE swollen. Patient not happy with Lasix being held. B/P 119/66 this am. Back to bed with bed alarm on. Call light in reach.
[2022-06-22 05:51] VITALS: BP 119/66
--- NOTE | 2022-06-22 07:00 | NUR ---
Report to Sharon العلي.
--- NOTE | 2022-06-22 08:55 | NUR ---
Patient resting in chair. A&Ox4, RA, c/o pain in right leg. Refused PRN medication at this time. Swallowed pills whole with water. Requesting to restart lasix. Bilateral peripheral edema +2. An increase since yestarday. Findings reports to DONNA Kaplan. Left breast WNL, no redness, swelling or pain. Redness under bilateral breasts resolving with medication. Patient recieved shower this am. Medication applied under breasts. Chair in locked position. Call light within reach.
[2022-06-22 12:19] LABS: ALBUMIN 3.3 g/dL (3.4-4.8)
[2022-06-22 12:20] LABS: POTASSIUM 5.2 mmol/L (3.5-5.1)
[2022-06-22 12:21] LABS: CALCIUM 9.5 mg/dL (8.3-10.5)
[2022-06-22 12:22] LABS: TOTAL PROTEIN 5.9 g/dL (6.2-8.1)
[2022-06-22 12:24] LABS: TOTAL BILIRUBIN 0.3 mg/dL (0.2-1.2)
[2022-06-22 12:44] LABS: HEMATOCRIT 51.2 % (37.0-47.0); HEMOGLOBIN 16.2 g/dL (12.5-16.0); MEAN CELL VOLUME 100 fl (78-100); MEAN CORPUSCULAR HEMOGLOBIN 32 pg (27-31); MEAN CORPUSCULAR HGB CONC 32 g/dL (33-37); MEAN PLATELET VOLUME 11.6 fl (7.4-10.4); PLATELET COUNT 106 K/mm3 (130-400); RED BLOOD COUNT 5.13 M/mm3 (4.10-5.30); RED CELL DISTRIBUTION WIDTH 18.1 % (11.5-14.5); WHITE BLOOD COUNT 5.5 K/mm3 (4.8-10.8)
[2022-06-22 13:37] LABS: BAND 5 % (0-10); LYMPHOCYTE 13 % (20-51); MONOCYTE 4 % (3-10); NEUTROPHILS 78 % (42-75)
[2022-06-22 14:59] VITALS: BP 158/72
--- NOTE | 2022-06-22 15:27 | NUR ---
Spoke with Eva and her and daughter Paula regarding going home with home health on after lunch. She is agreeable with home health PT/OT/Bathaid/SN. They have choosen [facility]. Information faxed to [facility]. Awaiting approval from them
--- NOTE | 2022-06-22 19:02 | NUR ---
Report received from Sharon العلي. Patient sitting up in recliner,with legs elevated, playing on tablet. A/O x4. Denies pain, states has pain when up and standing/walking. Assessment completed. L breast bruising vastly decreased from this weekend. Continues to have yeast under breasts. Continues to have BLE edema. R greater then left. Denies questions, wants or needs at this time.
--- NOTE | 2022-06-23 05:48 | NUR ---
Rested well per her report. Up to BR with SBA to void. Assisted back to bed. AM medication taken. Weight up 2# lbs from yesterday.
[2022-06-23 05:59] VITALS: BP 109/64
--- NOTE | 2022-06-23 07:00 | NUR ---
RESUMED CARE FROM ANÍBAL ANDERSON.
--- NOTE | 2022-06-23 07:00 | NUR ---
Report to Danitza العلي.
[2022-06-23 11:49] LABS: HEMOGLOBIN 8.4 g/dL (12.5-16.0); MEAN CELL VOLUME 103 fl (78-100); MEAN CORPUSCULAR HEMOGLOBIN 32 pg (27-31); MEAN CORPUSCULAR HGB CONC 31 g/dL (33-37); MEAN PLATELET VOLUME 10.7 fl (7.4-10.4); PLATELET COUNT 163 K/mm3 (130-400); RED BLOOD COUNT 2.63 M/mm3 (4.10-5.30); RED CELL DISTRIBUTION WIDTH 18.3 % (11.5-14.5); WHITE BLOOD COUNT 4.7 K/mm3 (4.8-10.8)
[2022-06-23 12:04] LABS: POTASSIUM 4.4 mmol/L (3.5-5.1)
[2022-06-23 12:05] LABS: CALCIUM 9.3 mg/dL (8.3-10.5)
[2022-06-23 12:36] LABS: BAND 1 % (0-10); LYMPHOCYTE 11 % (20-51); MONOCYTE 8 % (3-10); NEUTROPHILS 79 % (42-75)
[2022-06-23 12:39] LABS: MICROCYTOSIS 1+; OVALOCYTES 1+; POLYCHROMASIA 1+
[2022-06-23 17:09] VITALS: BP 115/72
--- NOTE | 2022-06-23 18:42 | NUR ---
REPORT GIVEN TO ANÍBAL ANDERSON.
--- NOTE | 2022-06-23 19:45 | NUR ---
Report received from Danitza العلي. Patient sitting up in recliner playing game on tablet. A/O x4. PICC in place to DYLAN. Dressing CDI. Denies pain except has in her legs when she walks. Assessment completed. Denies wants or needs at this time.
[2022-06-23] MEDS ORDERED: DECADRON 4MG TAB4 MG PO (23:44)
[2022-06-23] MEDS ORDERED: GLIMEPIRIDE2 M1 PO (23:44)
--- NOTE | 2022-06-24 05:08 | NUR ---
Rested well all shift. Awakened for AM vital signs and daily weight. AM medication taken at this time. Denies pain. Weight 154.1. Rests with bed alarm on, call light in reach.
[2022-06-24 05:36] LABS: HEMATOCRIT 26.4 % (37.0-47.0); HEMOGLOBIN 8.2 g/dL (12.5-16.0); MEAN CELL VOLUME 104 fl (78-100); MEAN CORPUSCULAR HEMOGLOBIN 32 pg (27-31); MEAN CORPUSCULAR HGB CONC 31 g/dL (33-37); MEAN PLATELET VOLUME 10.3 fl (7.4-10.4); PLATELET COUNT 145 K/mm3 (130-400); RED BLOOD COUNT 2.54 M/mm3 (4.10-5.30); RED CELL DISTRIBUTION WIDTH 18.3 % (11.5-14.5); WHITE BLOOD COUNT 3.2 K/mm3 (4.8-10.8)
[2022-06-24 05:48] LABS: POTASSIUM 4.2 mmol/L (3.5-5.1)
[2022-06-24 05:49] LABS: CALCIUM 8.9 mg/dL (8.3-10.5)
[2022-06-24 06:07] VITALS: BP 110/64
[2022-06-24 06:18] LABS: LYMPHOCYTE 19 % (20-51); MONOCYTE 5 % (3-10)
[2022-06-24 06:20] LABS: NEUTROPHILS 74 % (42-75)
--- NOTE | 2022-06-24 07:03 | NUR ---
Report to Sharon العلي.
--- NOTE | 2022-06-24 13:15 | NUR ---
Patient discharged home with family and home health. Discharge instructions reviewed with patient, , daughter and friend. Questions addressed at this time. Krys, case manager specialist at bedside. All personal belongings sent with patient. Patient escorted by PCT in w/c to POV. PICC line and bracelet in place to right upper arm.
== END 2022-06-24 13:15 | disposition home health service (06) | DRG 178 ==
LOC: MED/SURG 12:57
PROVIDERS: Family Medicine; Nurse Practitioner; Physician Assistant; ADMIT Physician Assistant
DX: U07.1 COVID-19 (principal); C90.00 Multiple myeloma not having achieved remission; I10 Essential (primary) hypertension; E11.9 Type 2 diabetes mellitus without complications; Z79.84 Long term (current) use of oral hypoglycemic drugs; K21.9 Gastro-esophageal reflux disease without esophagitis; R53.1 Weakness; L03.031 Cellulitis of right toe; B37.2 Candidiasis of skin and nail; Z86.711 Personal history of pulmonary embolism; Z79.01 Long term (current) use of anticoagulants; Z86.718 Personal history of other venous thrombosis and embolism
CPT/HCPCS: J1815

== ENCOUNTER → 2022-12-27 | Outpatient (CLI) | payer MEDICARE, BC ==
[~2022-12-27] MED LIST changes: +AMLODIPINE BES2.5 MG PO; +APRESOLINE 25MG25 MG PO; +DECADRON 4MG TAB4 MG PO; +DECADRON6 M1 PO; +FUROSEMIDE40 MG PO; +GLIMEPIRIDE2 M1 PO; +LEVEMIR100 U/M1 SQ; +NOVOLOG 100U100 U/ML SQ; +ONDANSETRON HYDR8 MG PO; +ONETOUCH VERIO1 EACH MC; +PERCOCET 325 MG1 TA2 PO; +PROAIR HFA0.09 MG/AC IH; +TRAMADOL 50 MG TAB PO; +VIBRAMYCIN HYC100 MG PO; +ZYRTEC-D TABLE1 EACH PO; +[UNRECOGNIZED DRUG - OTHER] MC
== END ==
LOC: RAD 12:20
DX: M19.011 Primary osteoarthritis, right shoulder (principal); M25.551 Pain in right hip

== ENCOUNTER → 2023-01-25 | Outpatient (CLI) | payer MEDICARE, BC ==
[2023-01-25 13:48] LABS: ERYTHROCYTE SEDIMENTATION RATE 45 mm/hr (0-30)
[2023-01-25 14:00] LABS: ALBUMIN 4.2 g/dL (3.4-4.8); POTASSIUM 4.5 mmol/L (3.5-5.1)
[2023-01-25 14:01] LABS: CALCIUM 10.5 mg/dL (8.3-10.5)
[2023-01-25 14:02] LABS: TOTAL PROTEIN 5.9 g/dL (6.2-8.1)
[2023-01-25 14:04] LABS: TOTAL BILIRUBIN 0.4 mg/dL (0.2-1.2)
[2023-01-25 14:09] LABS: BASO # 0.02 K/mm3 (0.02-0.10); EOS # 0.04 K/mm3 (0.04-0.40); EOS % 0.4 % (1.0-5.0); HEMATOCRIT 34.1 % (37.0-47.0); HEMOGLOBIN 10.5 g/dL (12.5-16.0); LYMPH# 2.56 K/mm3 (1.50-4.00); MAGNESIUM 2.1 mg/dL (1.60-2.60); MEAN CELL VOLUME 99 fl (78-100); MEAN CORPUSCULAR HEMOGLOBIN 30 pg (27-31); MEAN CORPUSCULAR HGB CONC 31 g/dL (33-37); MEAN PLATELET VOLUME 11.5 fl (7.4-10.4); MONO # 0.83 K/mm3 (0.20-0.80); NEU # 6.31 K/mm3 (1.40-6.50); PLATELET COUNT 302 K/mm3 (130-400); RED BLOOD COUNT 3.45 M/mm3 (4.10-5.30); RED CELL DISTRIBUTION WIDTH 16.3 % (11.5-14.5); WHITE BLOOD COUNT 9.9 K/mm3 (4.8-10.8)
[2023-01-26 08:57] LABS: KAPPA LAMBDA RATIO 0.05 ratio (())
[2023-01-28 09:49] LABS: A/G RATIO (PEP) 1.12 (()); BETA GLOBULINS (PEP) 1.1 g/dL (0.7-1.2)
[2023-01-31 15:34] LABS: BETA-2 MICROGLOBULIN, SERUM AMS
== END ==
LOC: LAB 12:07
PROVIDERS: Internal Medicine Medical Oncology
DX: C90.00 Multiple myeloma not having achieved remission (principal)